=== PATIENT | female | born 1980 | race African-American/Black ===

== ENCOUNTER 2017-07-19 11:59 | Emergency (ER) | payer OTHER ==
[~2017-07-19] VITALS: Ht 154.9 cm; Wt 63.5 kg
[~2017-07-19 11:59] MED LIST: DOXYCYCLINE 10100 M1 PO; IBUPROFEN 600600 M1 PO; NOHOMEMEDICATIONS; NORCO 5-325 TA1 EACH PO; PERCOCET 5-3251 EACH PO; ZOFRAN ODT4 MG PO
[2017-07-19 13:58] LABS: HEMATOCRIT 34.9 % (37.0-47.0); HEMOGLOBIN 11.5 gm/dL (12.0-15.0); MCH 27.2 pg (26.0-34.0); MCHC 32.8 g/dL (28.0-37.0); MCV 82.9 fL (80.0-100.0); RBC 4.21 mil/uL (4.20-5.00); RDW 13.2 % (10.5-14.5)
[2017-07-19 14:06] LABS: CALCIUM 9.2 mg/dL (8.5-10.1); CREATININE 0.6 mg/dL (0.6-1.0); POTASSIUM 4.2 mmol/L (3.5-5.1)
[2017-07-19 15:20] VITALS: BP 101/56
== END 2017-07-19 15:20 | disposition home or self-care (01) ==
LOC: ER 11:59
PROVIDERS: Emergency Medicine
DX: O20.0 Threatened abortion (principal); Z3A.01 Less than 8 weeks gestation of pregnancy